=== PATIENT | female | born 1930 | race Caucasian/White ===

== ENCOUNTER 2016-10-12 01:11 | Day surgery (SDC) | payer MEDICARE ==
[~2016-10-12] VITALS: Ht 162.6 cm; Wt 81.8 kg
[~2016-10-12 01:11] MED LIST: ALBU8.5H2 INHALATION; ASCO500C6 PO; CALC-964 PO; CHOL10008 PO; CYAN250014 PO; FLC50T PO; FLUT15.88 NS; GLUC-120 PO; HYG25 PO; LEVO100T6 PO; LOSA50TA37 PO; MAGN400T39 PO; METO-272 PO; METO25TA6 PO; MULT1CAP33 PO; OMEP20CA11 PO; POTA10TA7 PO; VIT59LIQ SL; WARF5TAB7 PO
[2016-10-12] MEDS ORDERED: Propofol 10,000 mCg/mL 20 mL Inj ONE (01:12)
[2016-10-12] MEDS ORDERED: Lactated Ringer's 1,000 ML IV SCH (05:00)
[2016-10-12 10:39] VITALS: BP 154/108; PULSE 86; RESP 14; O2SAT 98
[2016-10-12] MEDS ORDERED: CYAN500L3 SL (10:55)
--- NOTE | 2016-10-12 10:56 | NUR ---
[facility] Admit Admitted to [facility] about 1000. VSS. Tele Afib. Denies pain. IV started. PT/INR 37.6/3.1. BG 121. Procedure and recovery reviewed and verbalizes understanding. Unable to obtain all labs. Dr. William notified and states ok, can proceed.
--- NOTE | 2016-10-12 11:10 | PCM.HPANE ---
Patient Data Date of Service: Oct 12, 2016 Surgeon Admitting Provider: Attending Provider:Amber William MD Primary Care Physician:Bebo Olivier DO Other Provider:Yosi Borrero Anesthesia Reason for Visit Persistent Atrial Fibrillation Ht/WT & BMI Height (Feet): 5 Height (Inches): 4.00 Weight (Kilograms): 81.800 Body Mass Index 30.79 Allergies Coded Allergies: Sulfa (Sulfonamide Antibiotics) (Verified Allergy, Severe, Rash, 10/12/16) LUKE Inhibitors (Verified Allergy, Intermediate, COUGH, 10/12/16) Past Anesthesia History Anesthesia History: Positive for:: Anesthesia Reactions (Trouble waking up) Diabetes History Hx Diabetes?: Yes MRSA MRSA: No Medications Hypertension Medication: Yes Home Meds Incl Beta Jennie: Yes Date Beta Jennie Taken: Oct 11, 2016 Time Beta Jennie Taken: 20:00 Reported Medications Cyanocobalamin (Vitamin B-12) (B-12)500 Mcg Tab. Mcg SL DAILY 10/12/16 Warfarin Sodium 5 Mg Tablet5 Mg PO DAILY 10/11/16 Cholecalciferol (Vitamin D3) (Vitamin D3)1,000 Unit Tab.chew1,000 Unit PO 10/11/16 Ascorbic Acid (Vitamin C)500 Mg Capsule.er500 Mg PO 10/11/16 Omeprazole 20 Mg Capsule.dr20 Mg PO DAILY 10/11/16 Multivitamin (Multivitamins)1 Each Capsule1 Each PO 10/11/16 Metoprolol Tartrate 25 Mg Vqzdvz80 Mg PO A PRN Tachycardia 10/11/16 Metoprolol Succinate ER 50 Mg Tab.er.24h25 Mg PO BID 10/11/16 Magnesium Oxide (Magnesium)400 Mg Jbawoj325 Mg PO BID 10/11/16 Losartan Potassium 50 Mg Dkdbtq63 Mg PO BID 10/11/16 Levothyroxine 100 Mcg Fcsman521 Mcg PO DAILY For Thyroid Replacement 10/11/16 Potassium Chloride ER (Klor-Con 10)10 Meq Mwujpp94 Meq PO DAILY 10/11/16 Gluc 2Kcl/Chondr/Vern Hy/Hy AC (Glucosamine & Chondroitin Cap)1 Each Capsule1 Each PO 10/11/16 Fluticasone Propionate 50 Mcg/Actuation [place].susp15.8 Ml NS 10/11/16 Flecainide Acetate 50 Mg Asxzsd78 Mg PO Q 12 HR 10/11/16 Chlorthalidone 25 Mg Uiiysi92 Mg PO DAILY #30 10/11/16 Calcium Carbonate/Vitamin D3 (Calcium 600 + Vit D 800 Tab)600 Mg-800 Tablet2 Each PO 10/11/16 Vit B2/Niacin/B-6/B-12/D-Panth (B Complex Sublingual Liquid)20-1.2MG/1 LiquidUnknown Dose SL 10/11/16 Albuterol HFA (Proair HFA)8.5 Gm Hfa.aer.ad2 Puffs INHALATION Q4H #1 INHALER 10/11/16 Discontinued Reported Medications Cyanocobalamin (Vitamin B-12) (Vitamin B12)2,500 Mcg Tab.chewUnknown Dose PO 10/11/16 History History of ENT Problems?: Yes HEENT History: Denies:: Cataracts (Had bilateral surgery) Dysphagia Glaucoma Sinus Problem Other HEENT Pertinent History: Upper full denture. Partial lower Hx of Heart Problems?: Yes Cardiovascular History: Positive for:: Cardiac Surgery (Cath x2 no stents) Heart Murmur Hypertension Irregular Heartbeat (Afib) Denies:: Chest Pain Congestive Heart Failure Edema Peripheral Vascular Hx of Respiratory Problem?: Yes Respiratory History: Positive for:: Asthma Denies:: Chest Surgery Pneumonia Tuberculosis Hx Neurologic Problems?: Yes Neurological History: Positive for:: Dizziness Headaches Denies:: CVA Dementia Parkinson's Disease Seizures Hx of GI Problems?: No Hx of Problems?: No HX of Peritoneal Dialysis: No Musculoskeletal History: Positive for:: Joint Replacement (Bilateral knees) Denies:: Back Injury Hx of Psycho/Social Problems?: No Hx Surgeries?: Yes (Hyst,Knees, cataracts, Lysis of adhesions x3, cyst from brain, GB, Appy ) Hx Any Other Health Problems?: Yes Other History: Positive for:: Cancer (Skin) Hospitalization Thyroid Disease History Blood Transfusions: Positive for:: Accept Blood Products? Denies:: Blood Transfusions Hx Diabetes: Yes Other Pertinent History: Esophageal repair Hx Alcohol Use: Yes (Occasionally)Hx Substance Use: No Stop/Bang JORDAN Risk Assessment: Low Risk, <3 Yes Risk Assessment Category Category 1A: Patient has history of documented sleep apnea, and HAS NOT received any narcotic, sedative or anesthesia administration during this stay. Category 1B: Patient has history of documented sleep apnea, and HAS received any narcotic , sedative or anesthesia administration during this stay Category 2: Patient has SUSPECTED Obstructive Sleep Apnea, and HAS received any narcotic , sedative or anesthesia administration during this stay. Category 3: Patient has SUSPECTED Obstructive Sleep Apnea and HAS NOT received narcotic, sedative or anesthesia administration during this stay. Category 4: Outpatient in Procedural Areas with known sleep apnea or who screen positive for High Risk via the STOP/BANG questionnaire. Exam Exam Vital Signs Vital Signs Date Time Temp Pulse Resp B/P Pulse Ox O2 Delivery O2 Flow Rate FiO2 10/12/16 10:39 36.4 86 14 154/108 98 Room Air General Appearance: Alert, Oriented X3, Cooperative HEENT/AIRWAY: MP 2, Neck Movement (OK), Mouth Opening (Upper dentures) Lungs: Clear to Auscultation, Normal Air Movement Heart: Normal S1, Normal S2 Plan Impression Patient chart reviewed, patient interviewed and anesthestic plan with risks, benefits, and alternatives discussed, and informed consent obtained. NPO Status: > 8 hours ASA Physical Status: ASA2 Mod Systemic Disease Anesthetic Plan: MAC Bene/Risks/Altern/Consents: Yes HP Complete Prior to Induction: Yes Frandy Olguin MD Oct 12, 2016 11:10
[2016-10-12 11:13] VITALS: BP 164/106; RESP 16
[2016-10-12 11:30] VITALS: BP 115/68; PULSE 50; RESP 18; O2SAT 98
[2016-10-12 11:45] VITALS: BP 137/56; PULSE 53; RESP 16; O2SAT 96
--- NOTE | 2016-10-12 11:46 | PCM.ANEP1 ---
Post Anesthesia Phase 1 PACU Phase 1 Assessment Date of Service: Oct 12, 2016 Vital Signs Vital Signs Date Time Temp Pulse Resp B/P Pulse Ox O2 Delivery O2 Flow Rate FiO2 10/12/16 11:30 50 18 115/68 98 Nasal Cannula 2.50 10/12/16 11:13 96 16 10/12/16 10:39 36.4 86 14 154/108 98 Room Air Anesthetic Administered: MAC Level of Alertness: Awake, talking JACKSON's with Equal Strength: Yes Pain: No Oxygen Delivery: Nasal Cannula Lungs: Normal Air Movement Frandy Olguin MD Oct 12, 2016 11:46
--- NOTE | 2016-10-12 11:47 | PCM.ANEP2 ---
Post Anesthesia Evaluation ASA/CMS Post Anesthesia Date of Service: Oct 12, 2016 VS in Patient's Normal Range?: Yes Resp Stable; Airway Patent?: Yes CV Function & Hydration Stable: Yes Mental Status Recovered?: Yes Pain control Satisfactory?: Yes N/V Control Satisfactory?: Yes Frandy Olguin MD Oct 12, 2016 11:47
[2016-10-12 12:00] VITALS: BP 137/60; PULSE 51; RESP 16; O2SAT 98
--- NOTE | 2016-10-12 12:51 | NUR ---
Procedure/Recovery/Discharge Anesthesia in and consented pt. about 1100. See their flow sheet for VS and meds. Pt. cardioverted with 200J x1 at 1113 and returned in SB. Went into tachycardic rhythm for short time then coughed and returned to SB with PACs. Care resumed at 1130. VSS. Tolerated well. Back to Base line by 1145. Discharge instructions given when returned about 1210, see sheets. Pt. and verbalize understanding. IV discontinued intact. Took po well. Discharged ambulatory with and all belongings at 1230.
--- NOTE | 2016-10-13 03:25 | PROCED ---
[address] [address] PROCEDURE NOTE PATIENT: ADY LOERA : 1930 MR#: [id number] ADMIT: 10/12/2016 JOB ID: [id number] DATE OF SERVICE: 10/12/2016 POSTOPERATIVE DIAGNOSIS(ES): PREOPERATIVE DIAGNOSIS(ES): SURGEON: PROCEDURES PERFORMED: DC cardioversion. INDICATIONS: Symptomatic atrial fibrillation, now on flecainide. DESCRIPTION OF PROCEDURE: Informed consent was obtained. Patient brought to the [facility]. The INRs were overall therapeutic. Anesthesia was available for anesthesia. The pads were placed in the AP positions. Anesthesia provided sedation with propofol. Please see their notes. The defibrillator was synchronized. The patient was successfully cardioverted to sinus rhythm with a 200 J biphasic shock. The patient tolerated the procedure well and left in stable condition. IMPRESSION: Successful DC cardioversion. GENA
== END 2016-10-12 23:59 | disposition home or self-care (01) ==
LOC: SOUO 01:11
PROVIDERS: ATTEND Internal Medicine
DX: I48.1 Persistent atrial fibrillation (principal); I10 Essential (primary) hypertension; I34.0 Nonrheumatic mitral (valve) insufficiency; Z79.899 Other long term (current) drug therapy; Z79.01 Long term (current) use of anticoagulants